=== PATIENT | female | born 1960 | race Two or more races ===

== ENCOUNTER → 2017-05-17 | Day surgery (SDC) | payer MEDICAID ==
[~2017-05-17] MED LIST: BUPIVACAINE/EPINEPHRINE 0.25% PF 30 ML VIAL INFIL ONE; MIDAZOLAM HCL 2 MG/2 ML VIAL ONE; ONDANSETRON HCL 4 MG/2 ML VIAL IV PUSH ONE; PROPOFOL 200 MG/20 ML AMP IV ONE; SODIUM CHLOR 0.9% 1000 ML BAG IV ONE; ceFAZolin INJ 1,000 MG VIAL ONE
--- NOTE | 2017-05-17 12:44 | TN ---
cc: ANATOLIY KAT M.D. DATE OF SURGERY 05/17/2017 PREOPERATIVE DIAGNOSIS 1. Right knee medial and lateral meniscal tears 2. Mild degenerative arthritis POSTOPERATIVE DIAGNOSIS 1. Right knee medial and lateral meniscal tears. 2. 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 Right knee chondromalacia medial femoral condyle grade 3A 4. Moderate synovitis right knee. PROCEDURE PERFORMED 1. Right knee arthroscopy with partial medial and lateral meniscectomies. 2. Chondroplasty patellofemoral joint. 3. Chondroplasty medial femoral condyle. 4. Limited synovectomy SURGEON Anatoliy Kat MD ANESTHESIA General via laryngeal mask augmented by local infiltration BLOOD LOSS Minimal FLUID REPLACEMENT 700 cc of crystalloid TOURNIQUET TIME 29 minutes at 300 mmHg. INDICATIONS FOR PROCEDURE Mrs. Dickson is a 56-year-old woman who has been having problems with right knee pain and mechanical symptoms since twisting her knee while working on October 2016. She has failed conservative treatment consisting of activity modification, injections and medications and has continued to have problems with pain, swelling and painful clicking and popping. As a result of her persistent symptoms and evidence of meniscal pathology on her MRI, she is being taken to the operating room for right knee arthroscopy for debridement. She was aware of the risks, benefits, potential complications and limitations of the procedure and a full written informed consent was obtained. DESCRIPTION OF THE PROCEDURE The patient was appropriately identified in the holding area. She correctly marked her right knee for surgery and was given one gram of intravenous Ancef as prophylactic antibiotic. She was then taken to the operating suite where she was placed under general laryngeal mask anesthetic by Dr. Light and then a well-padded tourniquet was applied high on her right thigh. At this time, her leg was prepped with alcohol and Hibiclens and she was draped in the normal standard fashion including the use of an impervious stockinette from the foot all the way up to the proximal tibia. At this time, a brief time-out was held confirming the right leg was the appropriate surgical site. The team was in agreement and the case was now begun. The right knee then had standard anteromedial, anterolateral joint line portals established under direct vision. A small effusion was evacuated. The scope was introduced. There was some evidence of particulate debris seen in the suprapatellar pouch as well as moderate synovitis. A limited synovectomy was performed in this region, although there was some evidence of capsular thickening, a true plica was not evident. The patellofemoral joint showed several areas of grade 2B and 3A chondromalacia involving the medial and lateral facets as well as the trochlear groove. A limited chondroplasty was performed in order to eliminate any loose debris that were was present or destined to be loose in the near future. The patella tracked relatively midline but there was some subtle patellar tilt. It did seem to improve after excising some of the synovial tissue. At this time, the medial gutter was now explored. There was no evidence of any loose bodies or significant synovitis. The medial compartment was now entered. There was a tear seen at the posterior third of the medial meniscus which was debrided with an oscillating shaver, but also further contoured with use of hand instruments as well. There was minimal chondromalacia seen on the medial tibial plateau, but the medial femoral condyle did have some areas of grade 2B and a small area of grade 3A chondromalacia. There was some fairly unstable tissue that was debrided with an oscillating shaver. The meniscus was fully probed after the partial meniscectomy was performed and there was no evidence of any instability. At this time, the intercondylar notch was now explored. The ACL was seen to be intact and tensioned appropriately with anterior drawer. There was some hypertrophic synovial tissue that sat over the anterior surface of the ACL and this was debrided with a shaver. At this time, the lateral compartment was now entered. The lateral meniscus did show evidence of a degenerative central tear seen that extended almost from the posterior horn to the anterior horn. This was debrided with a shaver until good stable tissue was obtained. The rest of the meniscus was probed and found to be stable and intact. The weightbearing surface on the tibial plateau and the lateral femoral condyle was without significant chondromalacia. The lateral gutter was now explored. Minimal synovitis and no loose bodies were identified. The knee was suction decompressed several times, then taken through a range of motion. I re-explored all compartments once again and no further pathology was identified. The knee was suction decompressed one final time. The instruments were then removed. The portals were closed with 3-0 nylon simple sutures and the portals were closed with 3-0 nylon. 20 cc of quarter percent Marcaine with epinephrine were then infiltrated subcutaneously and some intraarticularly as well for postoperative pain relief. The wound was dressed with Xeroform, 4x4s, ABD and an Tad wrap. The tourniquet was let down. There was brisk return of capillary refill. She was then awoken from anesthesia and taken to recovery in stable condition. Anatoliy Kat MD Electronically Signed Anatoliy Kat MD SIS/DJL /11:22 AM /12:31 PM MTDD
== END | disposition home or self-care (01) ==
LOC: ESDC 08:25
PROVIDERS: ATTEND Orthopaedic Surgery Sports Medicine
DX: S83.241A Other tear of medial meniscus, current injury, right knee, initial encounter (principal); S83.281A Other tear of lateral meniscus, current injury, right knee, initial encounter; M94.261 Chondromalacia, right knee; M65.9 Synovitis and tenosynovitis, unspecified
CPT/HCPCS: 01400; 29880; J0690; J2250; J2405; J3010; J7030